=== PATIENT | male | born 1955 | race African-American/Black ===

== ENCOUNTER → 2018-07-17 | Outpatient (CLI) | payer MEDICARE ==
[~2018-07-17] MED LIST: IOPAMIDOL 370 MG/ML 200 ML INFUS..BTL INJ ONE; SODIUM CHLORIDE 0.9% 250ML 250 ML ONE
[2018-07-17 09:57] LABS: BLOOD UREA NITROGEN 20 mg/dL (7-26); BUN/CREATININE RATIO 17 (6-25); CREATININE, SERUM 1.16 mg/dL (0.72-1.25); EST GLOMERULAR FILTRATION RATE > 60 ML/MIN (60-)
--- NOTE | 2018-07-17 12:41 | Diagnostic Imaging Report ---
EXAM: CT ABDOMEN AND PELVIS with and without IV CONTRAST DATE: 07/17/2018 Time stamp on Exam: 10:59 AM INDICATION: Prostate cancer with hematuria COMPARISON: None TECHNIQUE: The abdomen and pelvis were scanned using a multidetector helical scanner. Coronal and sagittal reformations were obtained. Hematuria protocol was utilized. Technique modulation was accomplished to maintain the lowest dose possible to the patient. IV Contrast: 150 cc of Isovue-370 Oral Contrast: None Radiation Dose: Total DLP 1337.44 mGy*cm Estimated effective dose: DLP x 0.015 x size factor FINDINGS: LOWER THORAX: No consolidations LIVER: No masses BILIARY: The gallbladder is unremarkable. No ductal dilatation. SPLEEN: No masses PANCREAS: No masses ADRENALS: No nodules KIDNEYS: Symmetric perfusion. No enhancing masses. No hydronephrosis. Small less than 1 cm in size interpolar right renal cyst. No calcified or lucent renal stones. There are no filling defects present within the collecting system, ureters or bladder. GI TRACT: No distention, wall thickening or evidence of obstruction. VESSELS: Scattered vascular calcification. PERITONEUM/RETROPERITONEUM: No free air or fluid. There is pelvic vascular calcification. LYMPH NODES: No lymphadenopathy REPRODUCTIVE ORGANS: TURP defect within the prostate. There is a 1.5 cm round hypodensity within the posterior aspect of the prostate (series 6, image 163 and series 700, image 72). BLADDER: Indentation of the bladder by the enlarged prostate. SOFT TISSUES: Unremarkable BONES: No lytic or blastic process. Degenerative changes of the spine. IMPRESSION: 1. No obvious cause for hematuria detected. 2. No renal stones or filling defects within the collecting system, ureters or bladder. 3. Focal round hypodensity in the posterior aspect of the prostate. Signed by: Dr. James Grey DO on 07/17/2018 12:38 PM
--- NOTE | 2018-07-17 15:08 | Diagnostic Imaging Report ---
EXAM: CHEST 2 VIEWS DATE: 07/17/2018 8:54 AM INDICATION:Malignant neoplasm of prostate COMPARISON: None FINDINGS: Lines and tubes: None Heart size normal. No focal pulmonary opacity, pleural effusion or pneumothorax. Upper abdomen unremarkable. No acute bony abnormality. IMPRESSION: Normal appearance of the chest. Signed by: Dr. Roland Gan M.D. on 07/17/2018 3:04 PM
--- NOTE | 2018-07-17 17:30 | Diagnostic Imaging Report ---
Bone Scan, delayed phase INDICATION: C61 Malignant neoplasm of prostate. Staging evaluation. COMPARISON: CT abdo/pelvis 07/17/2018 REPORT: Approximately 4 hours following intravenous administration of 27 mCi of Tc-99m MDP, delayed total body images in the anterior and posterior projections and selected spot images were obtained. Multiple foci of mildly increased tracer are seen throughout the cervical and thoracolumbar spine in a pattern consistent with degenerative change. Degenerative changes are also seen in the shoulders, hands, knees and feet. Otherwise, distribution of tracer activity is unremarkable throughout the skeletal system. No abnormal accumulation of tracer is seen in the soft tissues or urinary tract. IMPRESSION: No scan evidence of metastatic bone disease. Signed by: Dr. Nissa Zuleta M.D. on 07/17/2018 5:27 PM
== END ==
LOC: NM 08:43
PROVIDERS: ATTEND Urology
DX: C61 Malignant neoplasm of prostate (principal); R31.0 Gross hematuria
CPT/HCPCS: 36415; 71046; 74178; 78306; 82565; 84520; A9503; J7050; Q9967

== ENCOUNTER 2018-09-17 10:12 | Observation (INO) | payer MEDICARE ==
--- NOTE | 2018-09-14 12:06 | Diagnostic Imaging Report ---
EXAM: CHEST 2 VIEWS, PA and lateral DATE: 09/14/2018 Time stamp on exam: 11:39 AM INDICATION: Preop for prostate surgery. COMPARISON: 07/17/2018 FINDINGS: LINES/TUBES: None LUNGS: No consolidations or edema. PLEURA: No effusions or pneumothorax. HEART AND MEDIASTINUM: Normal size and contour. BONES AND SOFT TISSUES: No acute findings. Mild degenerative changes of the spine. IMPRESSION: No acute thoracic abnormality. Signed by: Dr. James Grey DO on 09/14/2018 12:03 PM
[2018-09-14 12:14] LABS: BASOPHILS % 0.4 % (0.0-1.0); EOSINOPHILS # (AUTO) 0.1 (0.0-0.4); EOSINOPHILS % 1.1 % (0.0-6.0); HEMATOCRIT 43.6 % (38.2-49.6); HEMOGLOBIN 14.8 g/dL (14.0-18.0); LYMPHOCYTES # (AUTO) 1.6 (1.0-3.2); LYMPHOCYTES % 30.8 % (18.0-39.1); MEAN CORPUSCULAR HEMOGLOBIN 31.3 pg (28-32); MEAN CORPUSCULAR HGB CONC 33.9 g/dL (31-35); MEAN CORPUSCULAR VOLUME 92.2 fL (81-99); MONOCYTES # (AUTO) 0.7 (0.2-0.8); MONOCYTES % 12.8 % (4.4-11.3); NEUTROPHILS # (AUTO) 2.9 (2.1-6.9); NEUTROPHILS % 54.5 % (38.7-80.0); PLATELET COUNT 191 x10e3/uL (140-360); RED BLOOD COUNT 4.73 x10e6/uL (4.3-5.7); RED CELL DISTRIBUTION WIDTH 14.6 % (11.7-14.4)
[~2018-09-17] VITALS: Ht 175.3 cm; Wt 102.1 kg
[~2018-09-17 10:12] MED LIST changes: +ALEVE220 MG PO; +BENICAR40 MG PO; +CRESTOR10 MG PO; -IOPAMIDOL 370 MG/ML 200 ML INFUS..BTL INJ ONE; +NISOLDIPINE34 MG PO; -SODIUM CHLORIDE 0.9% 250ML 250 ML ONE
--- OUTSIDE RECORDS SUMMARY | 2018-09-17 10:15 | XMS REPORT ---
Author Author [facility] Address Unknown Phone Unavailable Care Team Providers Care Gospel Singer Name Role Phone MYRA ROBLES Unavailable Unavailable Problems This patient has no known problems. Allergies, Adverse Reactions, Alerts This patient has no known allergies or adverse reactions. Medications This patient has no known medications. Results Test Description Test Time Test Comments Text Results Atomic Results Result Comments CHEST 2 VIEWS 2018-09-14 12:02:00 [place] [address] Patient Name: DAMEON RODAS JR MR #: [id number] : 1955 Age/Sex: 63/M Req #: [id number] Adm Physician: Ordered by: MYRA ROBLES MD Report #: [id number] Location: OR Room/Bed: Procedure: [id number] DX/CHEST 2 VIEWS Exam Date: 09/14/18 Exam Time: 1139 REPORT STATUS: Signed EXAM: CHEST 2 VIEWS, PA and lateral DATE: 09/14/2018 Time stamp on exam: 11:39 AM INDICATION: Preop for prostate surgery. COMPARISON: 07/17/2018 FINDINGS: LINES/TUBES: None LUNGS: No consolidations or edema. PLEURA: No effusions or pneumothorax. HEART AND MEDIASTINUM: Normal size and contour. BONES AND SOFT TISSUES: No acute findings. Mild degenerative changes of the spine. IMPRESSION: No acute thoracic abnormality. Signed by: Dr. Jazzmine Grey DO on 09/14/2018 12:03 PM Dictated By: JAZZMINE GREY DO 02 Transcribed By: DAKOTA on 09/14/181202 COPY TO: MYRA ROBLES MD BONE and/or JOINT WHOLE BODY 2018-07-17 17:21:00 [place] [address] Patient Name: DAMEON RODAS JR MR #: [id number] : 1955 Age/Sex: 63/M Req #: [id number] Adm Physician: Ordered by: MYRA ROBLES MD Report #: [id number] Location: [place] Room/Bed: Procedure: [id number] NM/BONE and/or JOINT WHOLE BODY Exam Date: 07/17/18 Exam Time: 0900 REPORT STATUS: Signed Bone Scan, delayed phase INDICATION: C61 Emily gnant neoplasm of prostate. Staging evaluation. COMPARISON: CT abdo/pelvis 07/17/2018 REPORT: Approximately 4 hours following intravenous administration of 27 mCi of Tc-99m MDP, delayed total body images in the anterior and posterior projections and selected spot images were obtained. Multiple foci of mildly increased tracer are seen throughout the cervical and thoracolumbar spine in a pattern consistent with degenerative change. Degenerative changes are also seen in the shoulders, hands, knees and feet. Otherwise, distribution of tracer activity is unremarkable throughout the skeletal system. No abnormal accumulation of tracer is seen in the soft tissues or urinary tract. IMPRESSION: No scan evidence of metastatic bone disease. Signed by: Dr. Tony Zuleta M.D. on 07/17/2018 5:27 PM Dictated By: TONY ZULETA MD 26 Transcribed By: DAKOTA on 07/17/181726 COPY TO: MYRA SUTHERLAND MD CHEST 2 VIEWS 2018-07-17 15:03:00 [facility] [address] [place] [address] Patient Name: DAMEON RODAS JR MR #: [id number] : 1955 Age/Sex: 63/M Req #: [id number] Adm Physician: Ordered by: MYRA ROBLES MD Report #: [id number] Location: [place] Room/Bed: Procedure: [id number] DX/CHEST 2 VIEWS Exam Date: 07/17/18 Exam Time: 0940 REPORT STATUS: Signed EXAM: CHEST 2 VIEWS DATE: 07/17/2018 8:54 AM INDICATION:Malignant neoplasm of prostate COMPARISON: None FINDINGS: Lines and tubes: None Heart size normal. No focal pulmonary opacity, pleural effusion or pneumothorax. Upper abdomen unremarkable. No acute bony abnormality. IMPRESSION: Normal appearance of the chest. Signed by: Dr. Ayala Robles M.D. on 07/17/2018 3:04 PM Dictated By: AYALA ROBLES MD 03 Transcribed By: DAKOTA on 07/17/18 150 COPY TO: MYRA ROBLES MD CT ABDOMEN/PELVIS WOW 2018-07-17 12:21:00 [place] [address] Patient Name: DAMEON RODAS JR MR #: [id number] : 1955 Age/Sex: 63/M Req #: [id number] Adm Physician: Ordered by: MYRA ROBLES MD Report #: [id number] Location: [place] Room/Bed: Procedure: [id number] CT/CT ABDOMEN/PELVIS WOW Exam Date: 07/17/18 Exam Time: 1045 REPORT STATUS: Signed EXAM: CT ABDOMEN AND PELVIS with and without IV CONTRAST DATE: 07/17/2018 Time stamp on Exam: 10:59 AM INDICATION: Prostate cancer with hematuria COMPARISON: None TECHNIQUE: The abdomen and pelvis were scanned using a multidetector helical scanner. Coronal and sagittal reformations were obtained. Hematuria protocol was utilized. Technique modulation was accomplished to maintain the lowest dose possible to the patient. IV Contrast: 150 cc of Isovue-370 Oral Contrast: None Radiation Dose: Total DLP 1337.44 mGy*cm Estimated effective dose: DLP x 0.015 x size factor FINDINGS: LOWER THORAX: No consolidations LIVER: No masses BILIARY: The gallbladder is unremarkable. No ductal dilatation. SPLEEN: No masses PANCREAS: No masses ADRENALS: No nodules KIDNEYS: Symmetric perfusion. No enhancing masses. No hydronephrosis. Small less than 1 cm in size interpolar right renal cyst. No calcified or lucent renal stones. There are no filling defects present within the collecting system, ureters or bladder. GI TRACT: No distention, wall thickening or evidence of obstruction. VESSELS: Scattered vascular calcification. PERITONEUM/RETROPERITONEUM: No free air or fluid. There is pelvic vascular calcification. LYMPH NODES: No lymphadenopathy REPRODUCTIVE ORGANS: TURP defect within the prostate. There is a 1.5 cm round hypodensity within the posterior aspect of the prostate (series 6, image 163 and series 700, image 72). BLADDER: Indentation of the bladder by the enlarged prostate. SOFT TISSUES: Unremarkable BONES: No lytic or blastic process. Degenerative changes of the spine. IMPRESSION: 1. No obvious cause for hematuria detected. 2. No renal stones or filling defects within the collecting system, ureters or bladder. 3. Focal round hypodensity in the posterior aspect of the prostate. Signed by: Dr. Jazzmine Grey DO on 07/17/2018 12:38 PM Dictated By: JAZZMINE GREY DO 1238 Transcribed By: DAKOTA on 07/17/18 1238 COPY TO: MYRA ROBLES MD
[2018-09-17] MEDS ORDERED: CEFAZOLIN SOD 1 GM/NS 50ML 100 ML IV ONE (11:06)
[2018-09-17] MEDS ORDERED: OLMESARTAN HCTZ PO (11:45)
[2018-09-17 12:34] LABS: ANION GAP 12.8 mmol/L (8-16); BLOOD UREA NITROGEN 16 mg/dL (7-26); BUN/CREATININE RATIO 13 (6-25); CALCIUM 9.5 mg/dL (8.4-10.2); CARBON DIOXIDE 27 mmol/L (22-29); CHLORIDE 107 mmol/L (98-107); CREATININE, SERUM 1.23 mg/dL (0.72-1.25); EST GLOMERULAR FILTRATION RATE > 60 ML/MIN (60-); GLUCOSE 91 mg/dL (74-118); POTASSIUM 3.8 mmol/L (3.5-5.1); SODIUM 143 mmol/L (136-145)
[2018-09-17] MEDS ORDERED: GELATIN SPONGE 12-7MM ONE (12:49)
[2018-09-17] MEDS ORDERED: IOPAMIDOL 610MG/1ML 300 MG/ML VIAL IV ONE (12:49)
[2018-09-17] MEDS ORDERED: NALOXONE HCL INJ 0.4 MG/ML AMP IV PRN (15:45)
[2018-09-17] MEDS ORDERED: MORPHINE SULFATE 1 MG/ML 30ML PCA IV PRN (15:45)
[2018-09-17] MEDS ORDERED: ACETAMINOPHEN 1000 MG/100 ML IV PRN (15:45)
[2018-09-17] MEDS ORDERED: DIPHENHYDRAMINE HCL INJ 50 MG/ML VIAL IM PRN (15:45)
[2018-09-17] MEDS ORDERED: ONDANSETRON HCL INJ 2MG/ML 2ML 2 MG/ML VIAL IV PRN (15:45)
[2018-09-17] MEDS ORDERED: GLYCOPYRROLATE 0.2 MG/ML VIAL ONE (16:18)
[2018-09-17] MEDS ORDERED: FENTANYL CITRATE/PF 100MCG/2 ML INJ ONE ×2 (16:19→19:53)
--- NOTE | 2018-09-17 17:05 | NUR ---
received pt via stretcher from PACU. AAOx3. PIV right FA 20g with LR and morphine DIRECTOR PHARMACY SERVICES. cardozo cath in place and draining clear yellow urine. resp even and unlbaored. reports abdominal pain 01/03. oriented to room and use of call light. call light placed within reach. bed in low and locked position.
[2018-09-17] MEDS: D5.45%NS/KCL 20MEQ 1,000 ML IV SCH ×2 (17:11→23:49)
[2018-09-17 17:18] VITALS: BP 153/83
[2018-09-17] MEDS ORDERED: PNEUMOCOCCAL VACCINE POLYVALENT 23 MCG/0.5 ML VIAL IM SCH (17:24)
[2018-09-17 17:25] VITALS: BP 153/83
[2018-09-17 17:26] VITALS: BP 153/83
[2018-09-17] MEDS ORDERED: GLYCOPYRROLATE INJ 1MG/ 5 ML SYR ONE (18:02)
[2018-09-17] MEDS ORDERED: LIDOCAINE HCL 2% LOCAL INJ 5 ML SDV VIAL INJ ONE (18:02)
[2018-09-17] MEDS ORDERED: DEXAMETHASONE SOD PHOS INJ 4 MG/ML VIAL ONE (18:02)
[2018-09-17] MEDS ORDERED: SEVOFLURANE INHAL SOLN 250 ML PEN BTL ONE (18:02)
[2018-09-17] MEDS ORDERED: NEOSTIGMINE 5 MG/5ML SYR ONE (18:02)
[2018-09-17] MEDS ORDERED: ONDANSETRON HCL INJ 2MG/ML 2ML 2 MG/ML VIAL ONE (18:02)
[2018-09-17] MEDS ORDERED: ROCURONIUM BROMIDE 10 MG/ML 5ML VIAL ONE (18:02)
[2018-09-17] MEDS ORDERED: PROPOFOL IV EMULSION 10 MG/ML 20 ML VIAL ONE (18:02)
[2018-09-17] MEDS ORDERED: ACETAMINOPHEN 1000 MG/100 ML IV ONE (18:02)
[2018-09-17] MEDS ORDERED: MIDAZOLAM HCL 2 MG/2 ML VIAL ONE (19:53)
[2018-09-17 20:48] VITALS: BP 143/84
--- NOTE | 2018-09-17 21:10 | NUR ---
Assessment done.no resp.distress.catheter care given.dressing site is dry .judith drain is in place.on npo.tele is in place. bed locked and in lowest position.phone and call light within reach.instructed to call for assistance as needed.keep monitor the pt.
[2018-09-17] MEDS: CEFAZOLIN SOD 1 GM/NS 50ML 50 ML IV SCH (22:13)
[2018-09-17 22:24] VITALS: BP 143/84
[2018-09-18] VITALS (8 sets, daily range): BP systolic 109–158; BP diastolic 63–84
--- NOTE | 2018-09-18 04:16 | NUR ---
Dressing changed.pt tolerated well.judith drain emptied.
[2018-09-18] MEDS: CEFAZOLIN SOD 1 GM/NS 50ML 50 ML IV SCH ×3 (05:43→21:49)
[2018-09-18 05:52] LABS: ANION GAP 11.2 mmol/L (8-16); BLOOD UREA NITROGEN 12 mg/dL (7-26); BUN/CREATININE RATIO 10 (6-25); CARBON DIOXIDE 28 mmol/L (22-29); CHLORIDE 103 mmol/L (98-107); CREATININE, SERUM 1.25 mg/dL (0.72-1.25); EST GLOMERULAR FILTRATION RATE > 60 ML/MIN (60-); GLUCOSE 123 mg/dL (74-118); POTASSIUM 4.2 mmol/L (3.5-5.1); SODIUM 138 mmol/L (136-145)
[2018-09-18 06:03] LABS: BASOPHILS % 0.2 % (0.0-1.0); HEMATOCRIT 40.7 % (38.2-49.6); HEMOGLOBIN 13.8 g/dL (14.0-18.0); LYMPHOCYTES % 11.2 % (18.0-39.1); MEAN CORPUSCULAR HEMOGLOBIN 31.2 pg (28-32); MEAN CORPUSCULAR HGB CONC 33.9 g/dL (31-35); MEAN CORPUSCULAR VOLUME 92.1 fL (81-99); MONOCYTES % 11.3 % (4.4-11.3); NEUTROPHILS % 76.9 % (38.7-80.0); PLATELET COUNT 208 x10e3/uL (140-360); RED BLOOD COUNT 4.42 x10e6/uL (4.3-5.7); RED CELL DISTRIBUTION WIDTH 14.6 % (11.7-14.4)
--- NOTE | 2018-09-18 06:55 | NUR ---
Bed side report given to the oncoming rn.walking rounds done.stable condition.
--- NOTE | 2018-09-18 07:38 | NUR ---
RECEIVED PATIENT RESTING IN BED NO SIGNS OF DISTRESS AT THIS TIME. BED LOW, WHEELS LOCKED, SIDE RAILS X2. CALL LIGHT IN REACH WILL CONTINUE TO MONITOR PATIENT.
[2018-09-18] MEDS: D5.45%NS/KCL 20MEQ 1,000 ML IV SCH ×2 (08:40→16:45)
--- NOTE | 2018-09-18 08:45 | NUR ---
PATIENT A/O X3, EVEN RESPIRATIONS ON RA. BOWEL SOUNDS ACTIVE. ABDOMINAL DRESSING CLEAN, DRY, AND INTACT. RIGOBERTO DRAIN INTACT. RIGHT FA 20 GAUGE IV WITH IVF @ 125 CC/HR. ADULT PROTECTIVE CASEWORKER MORPHINE AT BEDSIDE. SCD'S IN PLACE. SUTHERLAND DRAINING CLEAR YELLOW URINE. VITAL SIGNS STABLE. CALL LIGHT IN REACH WILL CONTINUE TO MONITOR PATIENT.
[2018-09-18] MEDS ORDERED: MORPHINE SULFATE 1 MG/ML 30ML PCA IV PRN (09:45)
--- NOTE | 2018-09-18 09:50 | NUR ---
REMOVED PATIENTS SUTHERLAND. CATHETER TIP INTACT ON REMOVAL. PATIENT DUE TO VOID.
--- NOTE | 2018-09-18 10:25 | NUR ---
Visit made by the Spiritual Care Department Pastoral Visitor, Odalys Ross. PV provided pastoral presence, prayer, hospitality, and supportive listening. Pastoral Visitor informed pt/family of the scope of Mechanical Project Engineer Services and availability. HARPREET ODELL Mill Tender Washing Spiritual Care Department O: [phone] Pager: [phone] ([phone] number calling from)
--- NOTE | 2018-09-18 13:09 | NUR ---
NOTIFIED DR. ROBLES REGARDING HR 48-50. NEW ORDER TO [facility] ATTENDANT PUMP.
--- NOTE | 2018-09-18 13:31 | NUR ---
ASSOCIATE PRODUCER PUMP DISCONTINUED
[2018-09-18] MEDS: DOCUSATE SODIUM 100 MG CAP PO SCH (16:45)
--- NOTE | 2018-09-18 17:39 | History and Physical ---
CHIEF COMPLAINT: Prostatic cancer, umbilical hernia. HISTORY OF PRESENT ILLNESS: A 63-year-old black male patient, diagnosed with prostate cancer, follows with Dr. Cowart. The patient had pelvic adenopathy. He was admitted for cystoscopy and bilateral pelvic node biopsy and repair of umbilical hernia. 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 PAST MEDICAL HISTORY: Hypertension and prostate cancer. PERSONAL HISTORY: No history of smoking or alcohol. PAST SURGICAL HISTORY: None. PHYSICAL EXAMINATION: VITAL SIGNS: Blood pressure 119/70, pulse of 82. HEENT: Normal. NECK: No JVD. LUNGS: Clear. ABDOMEN: Soft. Postsurgical wound present. Bowel sounds normal. EXTREMITIES: Lower extremities, no edema. CP BLEACHER OPERATOR: Normal. LABORATORY DATA: CBC; white blood count 9.13, hemoglobin 13.8. Chemistry; sodium 138, potassium 4.2, BUN 12, creatinine 1.25. ASSESSMENT: Prostate cancer, benign prostatic hyperplasia, umbilical hernia, status post cysto, bilateral pelvic lymph node and excisional biopsy, umbilical hernia repair. PLAN: Continue postsurgical care. Discharge plan tomorrow. MD SUSANNA Solomon/AMANDA /[id number]
--- NOTE | 2018-09-18 17:50 | NUR ---
AMBULATED PATIENT IN HALLWAY, STEADY GAIT. ASSISTED PATIENT TO TOILET. PATIENT VOIDED SINCE SUTHERLAND REMOVAL. ASSISTED PATIENT BACK TO BED. CALL LIGHT IN REACH WILL CONTINUE TO MONITOR PATIENT.
--- NOTE | 2018-09-18 20:55 | NUR ---
Assessment done.no resp.distress.no pain voiced.ambulates.uses incentive spirometer.dressing site is dry .no bowel movement.passes gas.bed locked and in lowest position.phone and call light within reach.instructed to call for assistance as needed.
[2018-09-19] VITALS (7 sets, daily range): BP systolic 126–171; BP diastolic 63–92
[2018-09-19] MEDS: D5.45%NS/KCL 20MEQ 1,000 ML IV SCH ×3 (00:23→19:14)
--- NOTE | 2018-09-19 05:00 | NUR ---
Dressing changed.pt tolerated well.
[2018-09-19] MEDS: ACETAMINOPHEN/CODEINE 300MG - 30MG TAB PO PRN (05:55)
[2018-09-19] MEDS: CEFAZOLIN SOD 1 GM/NS 50ML 50 ML IV SCH ×3 (05:55→21:51)
[2018-09-19 06:04] LABS: BASOPHILS % 0.1 % (0.0-1.0); EOSINOPHILS % 0.1 % (0.0-6.0); HEMATOCRIT 40.3 % (38.2-49.6); HEMOGLOBIN 13.5 g/dL (14.0-18.0); LYMPHOCYTES # (AUTO) 1.2 (1.0-3.2); MEAN CORPUSCULAR HEMOGLOBIN 30.2 pg (28-32); MEAN CORPUSCULAR HGB CONC 33.5 g/dL (31-35); MEAN CORPUSCULAR VOLUME 90.2 fL (81-99); NEUTROPHILS # (AUTO) 5.1 (2.1-6.9); NEUTROPHILS % 69.4 % (38.7-80.0); PLATELET COUNT 191 x10e3/uL (140-360); RED BLOOD COUNT 4.47 x10e6/uL (4.3-5.7); RED CELL DISTRIBUTION WIDTH 14.7 % (11.7-14.4)
[2018-09-19 06:38] LABS: ANION GAP 11.6 mmol/L (8-16); BLOOD UREA NITROGEN 9 mg/dL (7-26); BUN/CREATININE RATIO 9 (6-25); CALCIUM 8.9 mg/dL (8.4-10.2); CARBON DIOXIDE 26 mmol/L (22-29); CHLORIDE 105 mmol/L (98-107); CREATININE, SERUM 1.03 mg/dL (0.72-1.25); EST GLOMERULAR FILTRATION RATE > 60 ML/MIN (60-); GLUCOSE 102 mg/dL (74-118); POTASSIUM 3.6 mmol/L (3.5-5.1); SODIUM 139 mmol/L (136-145)
--- NOTE | 2018-09-19 07:00 | NUR ---
Bed side report given to the oncoming rn.walking rounds done.stable condition.
[2018-09-19] MEDS: DOCUSATE SODIUM 100 MG CAP PO SCH ×2 (09:08→16:54)
--- NOTE | 2018-09-19 09:08 | NUR ---
PT AMBULATED IN HALLWAY, STEADY GAIT, DENIES ANY FLATUS OR BM AT THIS TIME, SITTING ON SIDE OF BED, CALL LIGHT WITHIN REACH
--- NOTE | 2018-09-19 09:16 | NUR ---
EDUCATED ABOUT IMM, SIGNED, FILED IN CHART, WITH COPY LEFT WITH FAMILY AT BEDSIDE.
[2018-09-19] MEDS ORDERED: BISACODYL 10 MG SUPP PR PRN (12:30)
[2018-09-19] MEDS ORDERED: BISACODYL 10 MG SUPP PR ONE (13:00)
--- NOTE | 2018-09-19 14:00 | NUR ---
NEW DRESSING APPLIED TO RIGOBERTO INSERTION SITE, PT TOLERATED WELL, CALL LIGHT WITHIN REACH
--- NOTE | 2018-09-19 18:45 | NUR ---
NO CHANGE IN CONDITION, PT DENIES PAIN AT THIS TIME, CALL LIGHT WITHIN REACH
--- NOTE | 2018-09-19 19:11 | NUR ---
WALKING ROUNDS PERFORMED, RECEIVED PT LAYING SEMI FOWLERS IN BED, AAOX3, RR EVEN AND NON-LABORED, ON ROOM AIR. NO S/SX OF DISTRESS NOTED. LEFT PT LAYING SEMI FOWLERS IN BED, BED IN LOW LOCKED POSITION, SIDE RAILS UPX2, CALL LIGHT AND PHONE WITHIN REACH.
[2018-09-20] VITALS: BP 143/81
[2018-09-20 04:00] VITALS: BP 141/78
[2018-09-20 05:53] LABS: BASOPHILS % 0.5 % (0.0-1.0); EOSINOPHILS % 0.5 % (0.0-6.0); HEMATOCRIT 40.7 % (38.2-49.6); LYMPHOCYTES # (AUTO) 1.4 (1.0-3.2); LYMPHOCYTES % 18.3 % (18.0-39.1); MEAN CORPUSCULAR HGB CONC 34.4 g/dL (31-35); MONOCYTES # (AUTO) 1.3 (0.2-0.8); MONOCYTES % 16.3 % (4.4-11.3); PLATELET COUNT 178 x10e3/uL (140-360); RED BLOOD COUNT 4.52 x10e6/uL (4.3-5.7); RED CELL DISTRIBUTION WIDTH 14.5 % (11.7-14.4)
[2018-09-20 06:10] LABS: ANION GAP 12.1 mmol/L (8-16); BLOOD UREA NITROGEN 12 mg/dL (7-26); BUN/CREATININE RATIO 13 (6-25); CALCIUM 9.2 mg/dL (8.4-10.2); CARBON DIOXIDE 25 mmol/L (22-29); CHLORIDE 104 mmol/L (98-107); CREATININE, SERUM 0.91 mg/dL (0.72-1.25); EST GLOMERULAR FILTRATION RATE > 60 ML/MIN (60-); GLUCOSE 100 mg/dL (74-118); POTASSIUM 4.1 mmol/L (3.5-5.1); SODIUM 137 mmol/L (136-145)
[2018-09-20] MEDS: CEFAZOLIN SOD 1 GM/NS 50ML 50 ML IV SCH ×2 (06:22→14:00)
--- NOTE | 2018-09-20 08:05 | NUR ---
Rounds by Dr. Cowart and orders in place for PA and Lateral, consult Dr. Lomas for low grade fevers, will d/c RIGOBERTO drain prior to discharge. Will monitor.
[2018-09-20 08:35] VITALS: BP 126/68
--- NOTE | 2018-09-20 08:43 | NUR ---
Al the PA for Dr. Lomas was notified of consult during his rounds on the floor.
[2018-09-20 08:50] VITALS: BP 126/68
--- NOTE | 2018-09-20 09:20 | Diagnostic Imaging Report ---
EXAM: CHEST 2 VIEWS DATE: 09/20/2018 8:02 AM INDICATION: Prostate cancer ^PA and Lateral to r/o PNA ^[id number] ^[id number] COMPARISON: Chest x-ray, 09/14/2018 FINDINGS: Lines and tubes: None Heart size normal. No focal pulmonary opacity, pleural effusion or pneumothorax. There is minimal linear opacity adjacent to the left hilum, new since last exam, likely mild atelectasis. Upper abdomen unremarkable with no pneumoperitoneum. No acute bony abnormality. IMPRESSION: Minimal left lower lobe atelectasis. No evidence for consolidative pneumonia or pleural effusion. Signed by: Dr. Roland Gan M.D. on 09/20/2018 9:17 AM
[2018-09-20] MEDS: DOCUSATE SODIUM 100 MG CAP PO SCH ×2 (09:50→17:00)
[2018-09-20] MEDS: ACETAMINOPHEN/CODEINE 300MG - 30MG TAB PO PRN (14:00)
--- NOTE | 2018-09-20 14:08 | NUR ---
Dr. Lomas rounding at this time and seeing patient for f/u consult per Dr. Cowart
[2018-09-20] MEDS ORDERED: TYLENOL WITH C1 EACH PO (14:22)
[2018-09-20] MEDS ORDERED: KEFLEX500 MG PO (14:23)
--- NOTE | 2018-09-20 15:56 | NUR ---
RIGOBERTO drain removed at this time per Dr. Toussaint's orders and tolerated well. cleared for discharge by DR. Cowart and Erika, completed abx infusion and tolerated well. Call to attending for discharge orders.
--- NOTE | 2018-09-20 16:30 | NUR ---
Call to Dr. Jaramillo's office to inform him of clearance by Dr. Lomas and Sofya for discharge and waiting for call back
--- NOTE | 2018-09-20 17:10 | NUR ---
Second call to Dr. Jaramillo's office for discharge orders and no call from first call yet. Waiting for call back while patient is wanting to go home at this time
[2018-09-20 17:15] VITALS: BP 133/78
--- NOTE | 2018-09-20 17:39 | NUR ---
Provided patient with discharge documentation, prescriptions for keflex 500mg TID x 2week, educated on precautions and to f/u with Dr. Lomas and Dr. Cowart after 2 weeks, provided with staple remover for f/u appt.
--- NOTE | 2018-09-20 18:19 | NUR ---
No call back yet from attending, Dr. Jaramillo at this time after 3 calls to his service for discharge. Orders from Dr. Cowart to discharge patient as patient insisting to leave at this time
--- NOTE | 2018-09-21 11:53 | Consultation ---
DATE OF CONSULTATION: 09/20/2018 REASON FOR CONSULTATION: Fever. HISTORY OF PRESENT ILLNESS: Thank you so much for asking me to see this patient. Mr. Mello is a very pleasant male, 63, who was diagnosed with prostate cancer back in July. He was supposed to get radiation therapy; however, the patient is being admitted to do a lymph node biopsy. The patient has had pelvic adenopathy. He was admitted for cystoscopy and pelvic lymph node biopsy as well as repair of umbilical hernia. This was done about three days ago. The patient was going to be discharged home today; however, he spiked fever. He tells me he did not really feel the fever, the fever happened while taking his vitals, he was not feeling sick at all. He is currently lying in bed, comfortable, willing to go home. MEDICATIONS: He is on Colace, Cefazolin, Tylenol No. 3, and Narcan. REVIEW OF SYSTEMS: HEENT: Negative. PULMONARY: Negative. CARDIAC: Negative. : Negative. GI: Negative. SKIN: There are no other rashes. LABORATORY DATA: White count 5.23, hemoglobin 14.8, hematocrit 43, and platelet 191. PHYSICAL EXAMINATION: GENERAL: He is currently alert, oriented, does not seem to be in acute distress. VITAL SIGNS: Stable, currently afebrile. HEENT: He is normocephalic. Does not appear icteric. NECK: Supple. No JVD. No carotid bruits. No thyromegaly. CHEST: Clear bilateral. HEART: S1, S2. No S3, S4, or murmur. ABDOMEN: Soft, obese. No tenderness. No hepatosplenomegaly. EXTREMITIES: No edema. The wound looked fairly hematuria, bloody, serosanguineous. IMPRESSION: Fever, clinically stable. I do not think it is infection. The patient did not even feel the fever. He is more concerned just about tumor fever. The patient has history of bladder cancer. I would recommend to get a CT abdomen and pelvis, patient will be discharged home, follow up as an outpatient. I do not think there is need for antibiotic. We will discuss with Dr. Cowart. Discussed with the patient. Time spent 60 minutes. MD JACKIE Appiah/AMANDA /[id number]
--- NOTE | 2018-09-22 07:42 | Discharge Summary ---
HOSPITAL COURSE: A 63-year-old black male patient with history of prostatic cancer, umbilical hernia, and had a pelvic lymph node. The patient was admitted and underwent cystoscopy, bilateral pelvic node biopsy, and repair of the umbilical hernia. His biopsy of all the nodes were negative for malignancy. The patient had a low-grade fever following surgery, so he was monitored and he was asymptomatic. Chest x-ray showed minimal left lower lobe atelectasis. No evidence of consolidation. The patient advised to ambulate and he was discharged home. Follow up in office. DISCHARGE DIAGNOSES: Umbilical hernia, prostate cancer, status post cystoscopy, previous lymph node biopsy, and umbilical hernia repair. DISCHARGE MEDICATIONS: Reconciled. MD SUSANNA Solomon/MODL /[id number]
--- NOTE | 2018-10-25 02:06 | Operative Report ---
DATE OF PROCEDURE: 09/17/2018 SURGEON: Lazarus Cowart MD PREOPERATIVE DIAGNOSES: 1. Prostate cancer. 2. Benign prostatic hyperplasia. POSTOPERATIVE DIAGNOSES: 1. Prostate cancer. 2. Benign prostatic hyperplasia. OPERATIONS PERFORMED: 1. Cystourethroscopy (separately performed to evaluate the patient's BPH). 2. Bilateral pelvic lymphadenectomy (separately performed for the prostate cancer). COSTUME TECHNICIAN: Tiesha Cowart MD ANESTHESIA: General. COMPLICATIONS: None. CLINICAL SUMMARY: Magdy Mello junior is a 63-year-old man with prostate cancer. He has a Jayy eight on the left apex and Jayy seven on the right-hand side. The patient has had previous transurethral resection of the prostate by another urologist and is brought for the above procedures for both evaluation and staging. He is aware of the risks of bleeding, infection, injury to adjacent structures, need for additional procedures and elected to proceed. OPERATIVE PROCEDURE IN DETAIL: Informed consent was verified. Magdy Mello junior was properly identified, taken to the operating room, placed on the cystoscopy table in supine position. Anesthesia was uneventfully begun. The patient's abdomen, genitalia were shaved, prepared and draped in usual sterile fashion. Flexible cystourethroscope was inserted into the patient's urethra, it was guided down, unremarkable. Distal urethra through normal appearing sphincteric region through the prostate bed, which was significant for fairly significant amount of regrowth or residual tissue causing visual obstruction of the prostate bed. Urinary bladder exhibited trabeculations, but no tumors, no stones, and no diverticula, normally positioned configured ureteral orifices were identified. Cystoscope was withdrawn. Nagel catheter was placed. An infraumbilical midline incision was made, carried through all layers of the abdominal wall. Extraperitoneal approach was utilized. [place] self-retaining retractor was utilized as well. We performed bilateral pelvic lymphadenectomy. Margins of resections involved the distal margin as Aquiles's ligament, the anterolateral margin as the external iliac vein. The posteromedial margin was the obturator fossa and the proximal margin was the bifurcation of common iliacs. Hemoclips were utilized to achieve lymphatic and vascular control. Specimens were sent off from both sides, each labeled as pelvic lymph nodes. Abdi drain was then placed through a separate stab incision, secured to the skin with nylon suture. Copious irrigation was performed. We verified hemostasis. The patient's incision was then approximated in layers utilizing heavy Vicryl suture to loosely approximate the rectus muscle and the fascia was approximated with heavy Vicryl suture in interrupted bewbjg-dy-egmuv fashion. The skin was approximated with skin shahnaz. We copiously irrigated each layer of the closure. Sterile dressings were applied and the patient was uneventfully reversed from anesthesia and taken to recovery room in stable condition. There were no complications to the procedure. He tolerated the procedure well. Explicit postoperative instructions were given. Follow the patient up in the office. Lazarus Cowart MD [place]/MODL /[id number] cc: Maria Victoria Monroy MD
== END 2018-09-20 18:33 | disposition home or self-care (01) ==
LOC: OR 10:12 → PACU V 15:36 → INTOOBSV 15:36 → MED/SURG 16:55
PROVIDERS: ADMIT Internal Medicine; ATTEND Internal Medicine
DX: C61 Malignant neoplasm of prostate (principal); N50.0 Atrophy of testis; E29.1 Testicular hypofunction; N40.1 Benign prostatic hyperplasia with lower urinary tract symptoms; R39.14 Feeling of incomplete bladder emptying; R35.1 Nocturia; R31.1 Benign essential microscopic hematuria; E66.9 Obesity, unspecified; Z68.33 Body mass index [BMI] 33.0-33.9, adult; K42.9 Umbilical hernia without obstruction or gangrene; Z87.442 Personal history of urinary calculi; K21.9 Gastro-esophageal reflux disease without esophagitis; I10 Essential (primary) hypertension; R59.0 Localized enlarged lymph nodes; R50.9 Fever, unspecified; J98.11 Atelectasis
CPT/HCPCS: 36415 ×5; 38500; 71046 ×2; 80048 ×4; 85025 ×4; 86850; 86900; 88305; 93005; G0378 ×4; J0131; J0690 ×4; J1100; J2001; J2250; J2270 ×2; J2405 ×2; J2704; J3490; Q9967; 88304; J3010

== ENCOUNTER → 2018-12-10 | Day surgery (SDC) | payer MEDICARE ==
[2018-12-07 09:59] LABS: BASOPHILS # (AUTO) 0.1 (0.0-0.1); BASOPHILS % 0.8 % (0.0-1.0); EOSINOPHILS # (AUTO) 0.1 (0.0-0.4); EOSINOPHILS % 1.3 % (0.0-6.0); HEMATOCRIT 41.8 % (38.2-49.6); HEMOGLOBIN 13.8 g/dL (14.0-18.0); LYMPHOCYTES # (AUTO) 1.4 (1.0-3.2); LYMPHOCYTES % 23.4 % (18.0-39.1); MEAN CORPUSCULAR HEMOGLOBIN 29.9 pg (28-32); MEAN CORPUSCULAR VOLUME 90.5 fL (81-99); MONOCYTES # (AUTO) 0.9 (0.2-0.8); MONOCYTES % 15.3 % (4.4-11.3); NEUTROPHILS # (AUTO) 3.5 (2.1-6.9); PLATELET COUNT 226 x10e3/uL (140-360); RED BLOOD COUNT 4.62 x10e6/uL (4.3-5.7); RED CELL DISTRIBUTION WIDTH 14.9 % (11.7-14.4)
[2018-12-07 11:27] LABS: ANION GAP 13.9 mmol/L (8-16); BLOOD UREA NITROGEN 17 mg/dL (7-26); BUN/CREATININE RATIO 14 (6-25); CALCIUM 10.1 mg/dL (8.4-10.2); CARBON DIOXIDE 26 mmol/L (22-29); CHLORIDE 103 mmol/L (98-107); CREATININE, SERUM 1.18 mg/dL (0.72-1.25); EST GLOMERULAR FILTRATION RATE > 60 ML/MIN (60-); GLUCOSE 94 mg/dL (74-118); POTASSIUM 3.9 mmol/L (3.5-5.1); SODIUM 139 mmol/L (136-145)
--- NOTE | 2018-12-07 12:02 | Diagnostic Imaging Report ---
Exam: Chest radiograph Clinical History: Preoperative clearance Findings: The cardiomediastinal silhouette and lungs are normal. The regional skeleton and soft tissue are unremarkable. There is no evidence of pleural effusion or pneumothorax. Impression: No radiographic evidence of acute cardiopulmonary disease. Signed by: Dr. Hakeem Cramichael MD on 12/07/2018 11:58 AM
[~2018-12-10] MED LIST changes: +BUPIVACAINE 0.5%/EPI 30 ML SDV INJ ONE; +CEFAZOLIN SOD 1 GM/NS 50ML 100 ML IV ONE; +DEXAMETHASONE SOD PHOS INJ 4 MG/ML VIAL ONE; +FENTANYL CITRATE/PF 100MCG/2 ML INJ ONE; +GLYCOPYRROLATE INJ 1MG/ 5 ML SYR ONE; +KEFLEX500 MG PO; +LIDOCAINE HCL 2% LOCAL INJ 5 ML SDV VIAL INJ ONE; +MIDAZOLAM HCL 2 MG/2 ML VIAL ONE; +NEOSTIGMINE 5 MG/5ML SYR ONE; +OLMESARTAN HCTZ PO; +ONDANSETRON HCL INJ 2MG/ML 2ML 2 MG/ML VIAL ONE; +PROPOFOL IV EMULSION 10 MG/ML 20 ML VIAL ONE; +ROCURONIUM BROMIDE 10 MG/ML 5ML VIAL ONE; +SCOPOLAMINE 1.5 MG PATCH ONE; +SEVOFLURANE INHAL SOLN 250 ML PEN BTL ONE; +TYLENOL WITH C1 EACH PO
[2018-12-10 16:15] VITALS: BP 131/73
--- NOTE | 2019-01-22 05:44 | Operative Report ---
DATE OF PROCEDURE: 12/10/2018 SURGEON: Lazarus Cowart MD PREOPERATIVE DIAGNOSIS: Large right-sided lymphocele. POSTOPERATIVE DIAGNOSIS: History of large right-sided lymphocele. OPERATION PERFORMED: Note, these were all staged procedures as part of multi-staged and multi-step process in managing the patient's prostate cancer. 1. Laparoscopic drainage of right-sided pelvic lymphocele. MANAGER SECURITY: Tiesha Cowart MD. ANESTHESIA: General. COMPLICATIONS: None. CLINICAL SUMMARY: Magdy Mello junior is a 63-year-old man with aggressive prostate cancer. He underwent pelvic lymphadenectomy. The patient then was referred for radiotherapy. Upon evaluation for radiotherapy, the patient's CT which showed a very large and asymptomatic lymphocele. The same lymphocele was distorting the patient's pelvic anatomy and moving the bladder over. The radiotherapist wanted this cystocele drained and manage prior to pursuing definitive radiotherapy for treatment of his prostate cancer. The patient is aware of the risks of bleeding, infection, injury to adjacent structures, need for additional procedures and elected to proceed. PROCEDURE IN DETAIL: Informed consent was verified. Magdy Mello junior was properly identified, taken to the operating room, placed on the operating table in supine position. Anesthesia was uneventfully begun. The patient's abdomen and genitalia were shaved, prepared, and draped in the usual sterile fashion. Nagel catheter was placed. A small incision was made supraumbilically. This incision was carried to the level of the patient's fascia. The fascia was identified. Stay sutures were placed on either side of the fascia. The fascia was lifted and it was then incised, and a 5 mm port was then placed under direct vision into the patient intraperitoneal cavity. Insufflation was performed. Panendoscopy of the abdominal cavity revealed no suspicious mucosal lesions. No obvious evidence of hernia. The location of the previous lymphocele that by CT was encroaching into the patient's pelvis and distorting the patient's bladder was not apparent. We, however, have a concern that the patient might have recurrent lymphocele. Therefore, we dissected a window at the right pelvic portion in the region of the pelvic lymphadenectomy and incised and opened over out of generous window into the retroperitoneum. Only minimal fluid was identified. There was no evidence of bleeding. The two ports that were placed under direct vision were then removed with visual inspection revealing no bleeding from the port sites. The abdominal cavity was then decompressed. The midline fascial incision was approximated with heavy Vicryl suture in interrupted fashion. The skin was approximated with absorbable suture for all the incisions. Sterile dressings were applied. The patient was uneventfully reversed from anesthesia and taken to recovery room in stable condition. There were no complications during the procedure. The patient tolerated the procedure well. Sponge, needle, and instrument counts were of course correct x2 at the end of the case. Estimated blood loss was minimal. We will plan on following the patient up in the office and then proceeding with radiotherapy as planned. Lazarus MD Sofya OH/MODL /[id number]
== END | disposition home or self-care (01) ==
LOC: OR 10:49
PROVIDERS: ATTEND Urology
DX: I89.8 Other specified noninfective disorders of lymphatic vessels and lymph nodes (principal); C61 Malignant neoplasm of prostate; N50.0 Atrophy of testis; E29.1 Testicular hypofunction; N40.1 Benign prostatic hyperplasia with lower urinary tract symptoms; R39.14 Feeling of incomplete bladder emptying; R35.1 Nocturia; K42.9 Umbilical hernia without obstruction or gangrene; I10 Essential (primary) hypertension; E78.5 Hyperlipidemia, unspecified; K21.9 Gastro-esophageal reflux disease without esophagitis; E66.9 Obesity, unspecified; Z01.810 Encounter for preprocedural cardiovascular examination; Z01.812 Encounter for preprocedural laboratory examination; Z01.818 Encounter for other preprocedural examination; Z87.442 Personal history of urinary calculi; Z80.42 Family history of malignant neoplasm of prostate
CPT/HCPCS: 36415; 49323; 71046; 80048; 85025; 88305; 93005; J0690; J1100; J2001; J2250; J2405; J2704; J3010; J3490; 88304